=== PATIENT | female | born 2000 | race Two or more races ===

== ENCOUNTER 2024-06-30 09:49 | Emergency (ER) | payer SELFPAY ==
[~2024-06-30] VITALS: Ht 157.5 cm; Wt 68.0 kg
[2024-06-30 10:44] LABS: ALBUMIN 3.7 g/dL (3.4-5.0); BILIRUBIN,DIRECT 0.1 mg/dL (0.0-0.2); BILIRUBIN,TOTAL 0.3 mg/dL (0.2-1.0); TOTAL PROTEIN, SERUM 7.1 g/dL (6.4-8.2)
[2024-06-30 11:37] VITALS: BP 115/65; TEMP 98.6; O2SAT 100
== END 2024-06-30 11:38 | disposition home or self-care (01) ==
LOC: ER 09:49
DX: R10.9 Unspecified abdominal pain (principal); Z90.49 Acquired absence of other specified parts of digestive tract
CPT/HCPCS: 36415; A4606; A4663